=== PATIENT | female | born 1975 | race Asian ===

== ENCOUNTER 2025-04-23 11:48 | Emergency (ER) | payer OTHER ==
[~2025-04-23] VITALS: Ht 160 cm; Wt 56.7 kg
[2025-04-23 12:44] VITALS: BP 110/20; O2SAT 98
[2025-04-23] MEDS ORDERED: ACETAMINOPHEN 500 MG GEL..CAP PO ONE ×2 (14:15→14:34)
[2025-04-23 16:14] LABS: BASO % 0.2 % (0.1-1.2); EOS # 0.00 (0.04-0.54); EOS % 0.0 % (0.7-7.0); LYMPH # 1.21 (1.18-3.74); LYMPH % 10.0 % (19.3-53.1); MEAN PLATELET VOLUME 9.80 fl (9.4-12.4); MONO # 1.14 (0.24-0.82); MONO % 9.4 % (4.7-12.5); NEUT # 9.70 (1.56-6.13); NEUT % 79.8 % (34.0-71.1); RED CELL DISTRIBUTION WIDTH 12.0 % (11.6-14.4)
[2025-04-23 16:20] LABS: COVID-19 AG NEGATIVE (NEGATIVE)
[2025-04-23 16:24] LABS: URINE APPEARANCE Clear; URINE BILIRRUBIN Negative (NEGATIVE); URINE BLOOD Moderate; URINE COLOR Yellow; URINE GLUCOSE Negative (NEGATIVE); URINE KETONE Negative (NEGATIVE); URINE LEUKOCYTE Moderate; URINE NITRATE Negative; URINE PROTEIN 30 (NEGATIVE); URINE UROBILINOGEN 0.2 E.U./dl
[2025-04-23 16:25] LABS: URINE EPITHELIAL CELLS 8.6 uL (0.0-38.8); URINE RBC 65.5 uL (0.0-20.8); URINE WBC 240.4 uL (0.0-23.2)
[2025-04-23 16:51] LABS: ALT/SGPT 26.0 U/L (12-78); AST/SGOT 16.0 U/L (15-37); BILIRUBIN TOTAL 1.06 mg/dL (0.3-1.2); BUN CREA RATIO 12.0 (7.0-25.0); CREATININE SERUM 0.84 mg/dL (0.55-1.02); GFR 71.48; GLOBULINA 4.8 G/DL (2.4-3.5); GLUCOSE FASTING 151.0 mg/dL (65-100); OSMOLALITY SERUM 279.0 MOSM/KG (275-295)
[2025-04-23 17:01] LABS: URINE CAST 0.00 uL (0.0-1.40)
[2025-04-23] MEDS ORDERED: CEFTRIAXONE SODIUM 1,000 MG VIAL IM ONE (17:15)
[2025-04-23] MEDS ORDERED: MACROBID 100 M100 MG PO (17:20)
[2025-04-23] MEDS ORDERED: CEFTRIAXONE SODIUM 1,000 MG VIAL ONE (17:39)
== END 2025-04-23 17:52 | disposition home or self-care (01) ==
LOC: ER 11:48
PROVIDERS: Preventive Medicine Public Health & General Preventive Medicine
DX: N39.0 Urinary tract infection, site not specified (principal); R30.0 Dysuria; R50.9 Fever, unspecified; M54.50 Low back pain, unspecified; Z20.822 Contact with and (suspected) exposure to COVID-19